=== PATIENT | male | born 1970 | race Caucasian/White ===

== ENCOUNTER 2020-03-21 10:09 | Outpatient (CLI) | payer OTHER, SELFPAY ==
--- NOTE | ~2020-03-21 | US_ITS ---
EXAMINATION: US scrotum doppler DATE: 03/21/2020 12:16 INDICATION: Right inguinal hernia TECHNIQUE: Testicular sonogram utilizing grayscale and Doppler COMPARISON: None. FINDINGS: The right testis measures 4.4 x 2.1 x 3.1 cm. The left testis measures 4.8 x 2.2 x 3.5 cm. Symmetric normal grayscale appearance to both testes. There is normal vascular flow to both testes. 6 mm anecho ic cyst at the right epididymal head. The right epididymis is otherwise normal with normal vascular f low. The left epididymis is normal with normal vascular flow. There is no varicocele. Small right hyd rocele. Right inguinal hernia with small bowel fat seen within the inguinal canal with Valsalva. On o ne of the sets of cine images a small portion of fluid-filled bowel transiently extends into the tonny ia. IMPRESSION: 1. Right inguinal hernia, fat-containing at rest with transient extension of a small portion of flui d-filled bowel through the hernia orifice with Valsalva. 2. Small right hydrocele. Reviewed, dictated and finalized at location A. IMPRESSION: 1. Right inguinal hernia, fat-containing at rest with transient extension of a small portion of fluid-filled bowel through the hernia orifice with Valsalva. 2. Small right hydrocele.
== END 2020-03-21 10:10 | disposition home or self-care (01) ==
PROVIDERS: PCP Family Medicine; Visit Provider Family Medicine
DX: R10.31 Right lower quadrant pain (principal)
CPT/HCPCS: 76870; 93976

== ENCOUNTER 2020-05-04 00:45 | Outpatient (CLI) | payer OTHER, SELFPAY ==
[2020-05-04 16:40] LABS: SARS-CoV-2 RNA PCR Negative
== END 2020-05-04 00:46 | disposition home or self-care (01) ==
LOC: ANHCOVIDDT 00:46
PROVIDERS: PCP Family Medicine; Visit Provider Surgery
DX: Z01.812 Encounter for preprocedural laboratory examination (principal); Z11.59 Encounter for screening for other viral diseases
CPT/HCPCS: 87635; C9803; U0003

== ENCOUNTER 2020-05-04 08:08 | Outpatient (CLI) | payer OTHER, SELFPAY | END 2020-05-04 08:09 | disposition home or self-care (01) | PROVIDERS: PCP Family Medicine; Visit Provider Surgery | DX: Z01.818 Encounter for other preprocedural examination (principal); K40.90 Unilateral inguinal hernia, without obstruction or gangrene, not specified as recurrent | CPT/HCPCS: 36415; 86850; 86900; 86901 ==

== ENCOUNTER 2020-05-07 00:43 | Day surgery (SDC) | payer OTHER, SELFPAY ==
[2020-05-03 08:48] VITALS: BMI 32.3
--- NOTE | 2020-05-06 13:42 | P.PNAN_ITS ---
Anes - Initial Pre Proc Eval Procedure: Operation Date: 05/07/20 09:30 Proposed Procedures p Laparoscopic Right Inguinal Hernia With Mesh, Davinci Assisted - Jeyson Cobian DO Date/Time: 05/06/20 13:42 Surgeon: Jeyson Cobian DO Pre Op Diagnosis: Right Inguinal Hernia Patient Data Age: 49 Gender: M Height: 6 ft Weight: 107.96 kg Allergies Allergy/AdvReac Type Severity Reaction Status Date / Time No Known Allergies Allergy Unverified 05/03/20 08:49 Home Medications Medication Instructions Recorded Confirmed Type Vitamin C 1 tablet PO DAILY 05/03/20 05/03/20 History Patient hx anesthesia problems: none Family hx anesthesia problems: none [facility] Past Medical History Medical History (Updated 05/06/20 @ 13:43 by Reynold Kramer MD) Healthy adult Social History Social History Smoking status: Former smoker 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 Questions were solicited and answers provided to the satisfaction of the patient/family/POA.
[2020-05-07] VITALS (8 sets, daily range): BP systolic 125–151; BP diastolic 79–96; PULSE 52–78; RESP 14–20; TEMP 36.2; O2SAT 98–100
[2020-05-07] MEDS: LACTATED RINGERS 1,000 ML 30 ML IV CONT (08:10)
--- NOTE | 2020-05-07 08:43 | WPDHPUPDATE1 ---
History and Physical Update Update Date/Time: 05/07/20 08:43 History and Physical has been reviewed, including an updated exam of the patient. There are NO changes in the patient's condition. Risks, benefits, and alternatives have been discussed and questions answered. Patient agrees to proceed with procedure.
[2020-05-07] MEDS: ceFAZolin 2 GM/D5W 50 ML 2 GM/50 ML BAG IVPB (09:08)
[2020-05-07] MEDS: IBUPROFEN IV 800 MG/200 ML 800 MG/200 ML BAG 400 MG IVPB (09:23)
[2020-05-07] MEDS: BUPIVACAINE/EPINEPHRINE 0.5% 30 ML VIAL INFILTRATE (09:45)
--- NOTE | 2020-05-07 10:47 | PM.PROC ---
Procedure Note - Detailed Date of procedure: 05/07/20 Pre-op diagnosis: Right Inguinal Hernia Post-op diagnosis: same (Indirect RIH, cord lipoma) Procedure performed: Laparoscopic right inguinal hernia repair with Progrip mesh, da Hollie assisted Description of procedure: Procedure as well as risks, benefits, and alternatives were discussed with the patient. Written consent was obtained and placed in chart prior to procedure. Patient was brought back to surgical suite. He was placed supine on operating table. Time-out was done to confirm patient and procedure. He was then intubated by Anesthesia Department. His abdomen was prepped and draped in sterile fashion using chlorhexidine prep. 0.5% bupivacaine with epinephrine was infiltrated at each location for incision. An 8 mm incision was made in the left lateral abdomen, and a 5 mm Optiview trocar was advanced through the abdominal layers under direct visualization. Once inside the abdominal cavity, carbon dioxide insufflation was used to create a pneumoperitoneum. A camera was inserted and the abdominal cavity was inspected. The patient was placed in slight Trendelenburg position. An 8 millimeter incision was made on the right lateral abdomen and an 8 millimeter trocar was inserted under direct visualization. Another 8 millimeter incision was made just superior to the umbilicus and an 8 millimeter trocar was inserted under direct visualization. The 5 mm port was then removed and this was replaced with another 8 mm robotic port. The robotic arms were brought up to the patient's bedside and secured to the ports. The camera and instruments were inserted. I then moved over to the robotic console and took control of the camera and instruments. After careful inspection of the abdominal cavity, I began scoring the peritoneum along the right lower quadrant using scissors with electrocautery. The preperitoneal plane was entered and this was carefully dissected caudally along the inferior epigastric vessels. Careful dissection with scissors with electrocautery and blunt dissection was used to continue this dissection. I dissected far enough laterally to allow for mesh placement, and also dissected medially to identify the pubic arch and Mario's ligament. The hernia sac was identified and carefully dissected posteriorly. The cord contents were also identified and the peritoneum was carefully dissected far enough posteriorly to allow for mesh placement. Once an adequate pocket was created, I then placed the mesh within the preperitoneal pocket and carefully unfolded it. The mesh was centered on the hernia defect with adequate overlap circumferentially. The inferior edge of the mesh was inspected to ensure that it was far enough away from the peritoneal edge. The mesh appeared in proper position overlying the entire myopectineal orifice. The peritoneum was then closed over the mesh using a 3-0 V-lock running absorbable suture. The robotic instruments were removed. The robotic arms were disengaged from the ports and moved away from the bedside. The patient was flattened out in bed, the ports were removed under direct visualization, and the pneumoperitoneum was released. The skin of the incisions was approximated using 4-0 Monocryl subcuticular suture, and Exofin glue was applied on top. The patient was awakened from anesthesia, extubated, and transferred to recovery. Implants: Progrip Mesh 10cm x 15cm Anesthesia: GETA and local (0.5% bupivicaine with epi) Surgeon: Jeyson Cobian DO Estimated blood loss (mL): 5 Drains: No Packing: No Pathology: none sent Complications: No immediate complications Condition: stable Disposition: same day Findings: Robotic assisted laparoscopic right inguinal hernia repair was performed. A robotic transabdominal preperitoneal approach was utilized. A moderate-sized indirect right inguinal hernia was identified as well as a right inguinal cord lipoma. The hernia sac and c
== END 2020-05-07 12:33 | disposition home or self-care (01) ==
PROVIDERS: PCP Family Medicine; Visit Provider Surgery
PROC: 8E0Y4CZ Robotic Assisted Procedure of Lower Extremity, Percutaneous Endoscopic Approach (ICD-10-PCS; CPT 49650; principal; 2020-05-07 09:30)
DX: K40.90 Unilateral inguinal hernia, without obstruction or gangrene, not specified as recurrent (principal); D17.6 Benign lipomatous neoplasm of spermatic cord; Z87.891 Personal history of nicotine dependence
CPT/HCPCS: 49650; S2900; A9270; C1781; J0330; J0690; J1100; J1741; J2250; J2405; J2704; J2710; J3010; J7120